=== PATIENT | male | born 2000 | race Caucasian/White ===

== ENCOUNTER 2022-04-16 13:47 | Emergency (ER) | payer SELFPAY ==
[2022-04-16 14:04] VITALS: BP 136/51; PULSE 88; RESP 16; O2SAT 99
--- NOTE | 2022-04-16 14:31 | ED.GENADUL_ITS ---
Discharge Plan Disposition Patient Disposition: HOME Discharge Details Clinical Impression: Dental infection Primary Care Provider: Unknown,Unknown ED Provider: Richy Barrera Discharge Instructions Instructions: Puncture Wound (ED) Additional Instructions: If you develop any new or significant worsening of symptoms please return immediately to the emergency department for reassessment. As discussed you should also take a probiotic once daily while on the antibiotic and for at least 1 week later. Referrals: Primary Care Provider [Outside] (If not improving please follow-up with your primary care provider) Discharge Data Discharge Date/Time-TO BE ENTERED AT DEPARTURE: 04/16/22 14:46 Medical Decision Making Patient presenting to the emergency department for chief plaint of worsening dental pain. Patient denies any injury or trauma. Physical exam shows a tender erythematous ulceration corresponding to the medial aspect of tooth #17 with no purulent drainage,. Patient does have some associated lymphadenopathy otherwise exam is unremarkable. . no signs of deep neck space infection ( Retropharyngeal abscess, Dick's angina, Parapharyngeal space infection, Peritonsillar Abscess ([employer]UID[employer]SELOR)) or Epiglottitis. Pt non toxic and stable. Given a worsening pain and discomfort with associated lymphadenopathy we will treat with Augmentin. After discussion of diagnosis and plan of care patient has no further needs, questions, or concerns and states clear understanding to return to the emergency department for any worsening symptoms. This documentation was generated using [employer] dictation system, please disregard any oddities of phrase or misspellings. HPI General Mode of arrival: ambulatory . Date/Time Provider Initiated Documentation: 04/16/22 14:31 . Limitations to Documentation: no limitations . Information obtained by: patient . History of Present Illness 21 year old M presents to the emergency department with the chief complaint of Dental pain, described as moderate, with intensity rated at 7. Quality is described as aching, and is localized to the mouth. Patient neck. Patient started experiencing this day(s) (3) and it has been constant. No relieving factors improve symptom(s), Patient notes no other symptoms.. Patient did receive the following treatments prior to arrival, NSAID Related Data Allergies Allergy/AdvReac Type Severity Reaction Status Date / Time No Known Allergies Allergy Unverified 04/16/22 14:03 General Stated Complaint: DentalOral GE: 4 Review of Systems Constitutional Constitutional: Denies chills and Denies fever(s) ENT Ears, Nose, Mouth, and Throat: Reports as per HPI, Denies change in voice, Repor ts dental pain, Denies dysphagia, Denies throat swelling and Denies tongue swelling Cardiovascular Cardiovascular: Denies chest pain and Denies dyspnea Respiratory Respiratory: Denies dyspnea, Denies stridor and Denies wheezing Gastrointestinal Gastrointestinal: Denies abdominal pain, Denies dysphagia, Denies nausea and Denies vomiting Integumentary/Breasts Skin/Breast: Denies rash Allergic/Immunologic Allergic/Immunologic: Denies throat swelling, Denies tongue swelling and Denies wheezing PFSH All Active Problems (Updated 04/16/22 @ 14:37 by Richy Barrera NP) Dental infection (Acute) Social History Smoking/Tobacco Use Status: Never Smoking risk assessment performed?: Yes Alcohol Intake: current Alcohol Intake frequency: a few times a week Alcohol type: beer Drug use: Occasionally Substance use type: marijuana Exam Const General: cooperative Orientation: alert, awake and oriented x3 Limitations: mental status not altered HENMT Head: normal to inspection, normocephalic and atraumatic Ears: hearing grossly normal bilaterally, normal mastoids bilaterally and no per iauricular adenopathy General nose exam: external nose normal Mouth: oropharynx normal, moist mucous membranes abnormal (Ulceration noted to the medial aspect of the tooth #17), no drooling, no muffled voice, normal tongue and no trismus Throat: posterior oropharynx normal, tonsils normal and uvula midline Eyes General: appearance normal, both eyes and all related structures Pupils: PERRL Neck Neck: normal visual inspection, full ROM, no meningeal signs, trachea midline, supple, no anterior neck swelling, lymphadenopathy left submandibular and no midline deformity Resp Effort & Inspection: normal respiratory effort and able to speak in complete sentences Course Vital Signs Vital signs: Vital Signs Pulse 88 04/16/22 14:04 Respiratory Rate 16 04/16/22 14:04 Blood Pressure 136/51 L 04/16/22 14:04 Pulse Oximetry 99 04/16/22 14:04 Pulse 88 04/16/22 14:04 Respiratory Rate 16 04/16/22 14:04 Respiratory Effort Non-Labored 04/16/22 14:06 Blood Pressure 136/51 L 04/16/22 14:04 Blood Pressure Position Sitting 04/16/22 14:04 Pulse Oximetry 99 04/16/22 14:04 Oxygen Delivery Method Room Air 04/16/22 14:04 Oxygen Flow Rate 0 04/16/22 14:04 Pain Level 7 04/16/22 14:04
== END 2022-04-16 14:46 | disposition home or self-care (01) ==
PROVIDERS: Emergency Provider Nurse Practitioner Family
DX: K04.7 Periapical abscess without sinus (principal); K12.1 Other forms of stomatitis
CPT/HCPCS: 99283; 99284